=== PATIENT | male | born 1965 | race Caucasian/White ===

== ENCOUNTER → 2020-01-26 | Outpatient (CLI) | payer OTHER ==
--- NOTE | 2020-02-01 14:35 | REP ---
RIGHT UPPER QUADRANT SONOGRAPHY HISTORY: Right upper quadrant pain. COMPARISON IMAGING: None. FINDINGS: Scanning through the right upper quadrant of the abdomen demonstrates a partially contracted appearing gallbladder without evidence of stone or polyp. No wall thickening is appreciated. Common bile duct is normal measuring 0.3 cm in greatest diameter. There are scattered tiny echogenic foci in the liver consistent with granulomata. No liver mass lesion or cyst is seen. No abnormality is noted in the pancreas. There is no evidence of ascites. A normal caliber aorta is seen. No right renal abnormality. Right kidney measures 12.9 x 5.7 x 5.4 cm. IMPRESSION: Granulomatous calcifications suspected in the liver. Otherwise negative right upper quadrant sonography. MTDD
== END ==
LOC: M RAD 08:42
PROVIDERS: ATTEND Internal Medicine
DX: R10.11 Right upper quadrant pain (principal); K76.9 Liver disease, unspecified

== ENCOUNTER → 2021-05-11 | Outpatient (CLI) | payer OTHER ==
[~2021-05-11] MED LIST: LATU120T PO; ROSU40TA4 PO
== END ==
LOC: M LABSMTC 09:05
PROVIDERS: ATTEND Anesthesiology
DX: Z01.812 Encounter for preprocedural laboratory examination (principal); Z20.822 Contact with and (suspected) exposure to COVID-19